=== PATIENT | male | born 1940 | race Caucasian/White ===

== ENCOUNTER 2018-04-28 14:19 | Emergency (ER) | payer MEDICARE, OTHER, SELFPAY ==
[2018-04-28 14:27] VITALS: BP 113/74; PULSE 78; RESP 16; TEMP 37.2; O2SAT 95
--- NOTE | 2018-04-28 14:28 | ED_ITS ---
HPI - Neuro Symptoms/Deficit General Chief Complaint: Neuro Symptoms/Deficit Stated Complaint: Stroke Time Seen by Provider: 04/28/18 14:28 Source: EMS Mode of arrival: EMS Limitations: other (Dementia) History of Present Illness HPI Narrative: Patient is a 78-year-old male brought in by EMS. They state that they got a very poor [facility]. The report was that at noon which was several hours prior to arrival here in the emergency department the nursing staff noticed that he was feeding himself with his right hand however was having some difficulty which apparently was not normal for him. Other than that story no other report was given by EMS other than the patient was just not acting normal per the nursing staff. Unable to obtain any history of physical from the patient secondary to his ability/willingness to participate in the exam. He does have a history of dementia. He is a DNR with limited medical interventions and came with paperwork stating this. Related Data Allergies Allergy/AdvReac Type Severity Reaction Status Date / Time No Known Drug Allergies Allergy Verified 04/28/18 14:27 Review of Systems Review of Systems unobtainable due to mental status [facility] Medical History Dementia (Acute) Comment: Unable to obtain past surgical history family history or social history secondary to patient's history of dementia Exam Initial Vital Signs Initial Vital Signs: Vital Signs Temperature 98.9 F 04/28/18 14:27 Pulse Rate 78 04/28/18 14:27 Respiratory Rate 16 04/28/18 14:27 Blood Pressure 113/74 04/28/18 14:27 Pulse Oximetry 95 04/28/18 14:27 Const General: comfortable and No acute distress Orientation: awake and not oriented x3 HENMT Head: normal to inspection and normocephalic Face and sinus: normal facial exam Eyes Pupils: PERRL Chest Chest: normal inspection of the chest Resp Effort & Inspection: normal respiratory effort Cardio Rate: regular rate Rhythm: regular rhythm GI Inspection: non-distended Palpation: soft Skin Lesions: no lesions Rashes: no rashes Neuro General: awake Other: Does move left arm spontaneously. I never saw a move his right arm spontaneously. Nursing staff never seen him move his right arm spontaneously. He did wiggle bilateral toes to command. Did not follow any other commands. Did not speak. Extrem Other: Patient does wiggle his toes to command however will not move his arms to command. I did see him move his left arm spontaneously. I never was able to see him move his right arm spontaneously. Scores GCS Thelma coma scale eye opening: Spontaneous Thelma coma scale verbal response: Sounds [place] coma scale motor response: Obey commands Thelma coma scale total score: 12 MDM - Neuro Symptoms/Deficit Lab Data Attestation: I reviewed the patient's lab results. Result diagrams: 04/28/18 14:25 04/28/18 14:25 Lab Results 04/28/18 04/28/18 Range/Units 14:25 14:25 WBC 8.5 (4.5-11.0) X10^3/uL RBC 5.34 (4.5-5.9) X10^6/uL Hgb 15.5 (13.5-17.5) g/dL Hct 46.2 (41-53) % MCV 86.5 (80-100) fL MCH 29.0 (26-34) PG MCHC 33.5 (30-36) % RDW 13.4 (11.6-14.8) % Plt Count 268 (150-400) X10^3/uL Neut % (Auto) 77.0 H (50-75) % Lymph % (Auto) 17.7 L (25-40) % Tift % (Auto) 4.5 (3-14) % Eos % (Auto) 0.5 L (2-4) % Baso % (Auto) 0.3 (0-2) % Neut # (Auto) 6500 H (6376-7242) /uL Sodium 140 (137-145) mmol/L Potassium 4.3 (3.4-5.1) mmol/L Chloride 105 (98-107) mmol/L Carbon Dioxide 21 L (22-32) mmol/L BUN 14 (9-20) mg/dL Creatinine 0.90 (0.66-1.25) mg/dL Estimated GFR > 60.0 (>60) mL/min BUN/Creatinine Ratio 15.6 (6-22) Glucose 357 H (80-110) mg/dL Calcium 9.3 (8.4-10.2) mg/dL Imaging Data CT scan - head: Radiologist's impression: PROCEDURE: CT HEAD/BRAIN WO CON INDICATIONS: AMS TECHNIQUE: Noncontrast 4.5 mm thick angled axial sections acquired from the foramen magnum to the vertex, with coronal and sagittal reformats. For radiation dose reduction, the following was used: automated exposure control, adjustment of mA and/or kV according to patient size. COMPARISON: None. FINDINGS: Image quality: Excellent. CSF spaces: Basal cisterns are patent. No extra-axial fluid collections. The ventricles are symmetric in size and shape. Brain: There is a low attenuation left frontotemporoparietal fluid collection with areas of hyperintensity. Greatest transverse dimension is in the right frontal lobe measuring 20 mm. There is cerebral volume loss for age, with resultant ventricular and sulcal prominence. There are periventricular and deep white matter chronic small vessel ischemic changes. There is intracranial internal carotid artery atherosclerosis. Skull and face: Calvarium and visualized facial bones appear intact, without suspicious lesions. Sinuses: Visualized sinuses and mastoids are clear. IMPRESSION: 1. There is a right-sided subdural fluid collection demonstrating likely acute on subacute/early chronic hemorrhage. No midline shift. 2. Moderate atrophy and chronic microvascular ischemic changes. The above findings were discussed with Dr. Leonides Miner on 04/28/18 at 3:59 PM. Dictated by: Ashlie Arriaza M.D. on 04/28/2018 at 16:07 Approved by: Ashlie Arriaza M.D. on 04/28/2018 at 16:10 ECG Data Attestation: I personally reviewed and interpreted this ECG as follows: Prior ECG tracings: not available for review Interpretation: Sinus rhythm Ventricular rate is 70 Left axis deviation Incomplete right bundle branch block Nonspecific ST T wave changes MDM Narrative Medical decision making narrative: Very poor history except that the patient was not acting ?normal? per the nursing staff over at his residence. I had a discussion with the patient's daughter whose phone number was on his PLOST form she was the medical power of estate attorney. She stated that she would like ? something done ?to evaluate for his change in mental status. Labs and head CT were ordered because of this. Head CT does show what is concerning for an acute on chronic subdural hematoma. The patient has no other signs of injury. I informed the patient's daughter of this finding. I did inform her that given his DNR status that it transfer to a facility with a neurosurgeon would not be warranted. We did discuss admitting him to the hospital versus discharging him back to his care facility under comfort care. I discussed the case with Dr. Fisher with Internal Medicine who stated that if we could set up care at his facility that would be a better option seeing as how there would not be any interventions performed here as an inpatient to the hospital. I was able to talk with the nurse practitioner assigned to his care facility. The patient did tolerate oral intake here in the ER. He did seem to be more alert when his son arrived at bedside. After discussion with the nurse practitioner we were able to set up a follow-up visit the next day to discuss further care options to include potentially hospice. I discussed this with the son who was at bedside. I do feel that discharging the patient back to his care facility is a better option currently. He is able to take his meds. He does not seem to be in any distress. His son expressed understanding and agreement with this plan. Discharge Plan Departure Patient Disposition: Home Clinical Impression: SDH (subdural hematoma) Discharge Date/Time: 04/28/18 19:34 Interventions: ED Discharge Assessment Last Done: 04/28/18 19:35 Instructions: How to Prevent Falls, DI for Subdural Hematoma Activity Restrictions/Additional Instructions: Karly Montilla who is the nurse practitioner for [facility] will meet with you at 10 o'clock tomorrow to discuss further treatment of his findings today in the emergency department. Please feel free to return to the emergency department at any point if his clinical condition changes /worsens or there is any other concerns.
--- NOTE | 2018-04-28 14:38 | DI.CT.S_ITS ---
PROCEDURE: CT HEAD/BRAIN WO CON INDICATIONS: AMS TECHNIQUE: Noncontrast 4.5 mm thick angled axial sections acquired from the foramen magnum to the vertex, with coronal and sagittal reformats. For radiation dose reduction, the following was used: automated exposure control, adjustment of mA and/or kV according to patient size. COMPARISON: None. FINDINGS: Image quality: Excellent. CSF spaces: Basal cisterns are patent. No extra-axial fluid collections. The ventricles are symmetric in size and shape. Brain: There is a low attenuation left frontotemporoparietal fluid collection with areas of hyperintensity. Greatest transverse dimension is in the right frontal lobe measuring 20 mm. There is cerebral volume loss for age, with resultant ventricular and sulcal prominence. There are periventricular and deep white matter chronic small vessel ischemic changes. There is intracranial internal carotid artery atherosclerosis. Skull and face: Calvarium and visualized facial bones appear intact, without suspicious lesions. Sinuses: Visualized sinuses and mastoids are clear. IMPRESSION: 1. There is a right-sided subdural fluid collection demonstrating likely acute on subacute/early chronic hemorrhage. No midline shift. 2. Moderate atrophy and chronic microvascular ischemic changes. The above findings were discussed with Dr. Leonides Miner on 04/28/18 at 3:59 PM. Dictated by: Ashlie Arriaza M.D. on 04/28/2018 at 16:07 Approved by: Ashlie Arriaza M.D. on 04/28/2018 at 16:10
[2018-04-28 14:45] LABS: Add Manual Diff / Slide Review NO; Basophils Percent Auto 0.3 % (0-2); Eosinophils Percent Auto 0.5 % (2-4); Hematocrit 46.2 % (41-53); Hemoglobin 15.5 g/dL (13.5-17.5); Lymphocytes Percent Auto 17.7 % (25-40); Mean Corpuscular HGB Conc 33.5 % (30-36); Mean Corpuscular Volume 86.5 fL (80-100); Monocytes Percent Auto 4.5 % (3-14); Neutrophils Absolute Auto 6500 /uL (3000-5900); Platelet Count 268 X10^3/uL (150-400); Red Blood Cell Count 5.34 X10^6/uL (4.5-5.9); Red Cell Distribution Width 13.4 % (11.6-14.8); White Blood Cell Count 8.5 X10^3/uL (4.5-11.0)
[2018-04-28 14:50] LABS: BUN Creatinine Ratio 15.6 (6-22); Blood Urea Nitrogen 14 mg/dL (9-20); Calcium 9.3 mg/dL (8.4-10.2); Carbon Dioxide 21 mmol/L (22-32); Chloride 105 mmol/L (98-107); Estimated Glomerular Filt Rate > 60.0 mL/min (>60); Glucose 357 mg/dL (80-110); HEMOLYSIS 24 (0-50); Potassium 4.3 mmol/L (3.4-5.1); Sodium 140 mmol/L (137-145)
[2018-04-28 15:07] VITALS: BP 103/79; PULSE 69; RESP 13; O2SAT 98
[2018-04-28 16:00] VITALS: BP 115/74; PULSE 68; RESP 18
[2018-04-28 16:30] VITALS: BP 136/64; PULSE 73; RESP 16; O2SAT 92
--- NOTE | 2018-04-28 19:07 | PC.NURSE ---
Gave report to [facility]ol[facility]. They are sending someone over to pick him up
[2018-04-28 19:35] VITALS: PULSE 86; RESP 16; O2SAT 96
== END 2018-04-28 19:34 | disposition home or self-care (01) ==
PROVIDERS: Emergency Provider Emergency Medicine
DX: S06.5X9A Traumatic subdural hemorrhage with loss of consciousness of unspecified duration, initial encounter (principal)
CPT/HCPCS: 70450; 80048; 85025; 93005; 93010; 99283; 99285; 99291